=== PATIENT | female | born 1995 | race Caucasian/White ===

== ENCOUNTER 2018-03-14 18:08 | Emergency (ER) | payer OTHER ==
[~2018-03-14] VITALS: Ht 149.9 cm; Wt 57.3 kg
[2018-03-14 19:25] VITALS: BP 132/65
== END 2018-03-14 19:34 | disposition home or self-care (01) ==
LOC: EMS 18:12
DX: O99.511 Diseases of the respiratory system complicating pregnancy, first trimester (principal); O99.331 Smoking (tobacco) complicating pregnancy, first trimester; J02.9 Acute pharyngitis, unspecified; R03.0 Elevated blood-pressure reading, without diagnosis of hypertension; Z3A.01 Less than 8 weeks gestation of pregnancy
CPT/HCPCS: 87430